=== PATIENT | female | born 1980 | race Caucasian/White ===

== ENCOUNTER 2017-09-06 08:26 | Emergency (ER) | payer MEDICAID, OTHER ==
[2017-09-06 08:27] VITALS: BMI 24.0
[2017-09-06 08:39] VITALS: BP 125/68; PULSE 60; RESP 16; TEMP 97.9; O2SAT 100
--- NOTE | 2017-09-06 08:47 | C.PDOC ---
History Of Present Illness 37-year-old female, presents to the emergency department with complaints of an itchy rash to bilateral arms upon waking up this morning. Patient denies any known allergens, new detergents or lotions. Denies shortness of breath, sensation of throat closing up, lip or tongue swelling. No other complaints at this time Time Seen by Provider: 09/06/17 08:41 Chief Complaint (Nursing): Abnormal Skin Integrity History Per: Patient History/Exam Limitations: no limitations Current Symptoms Are (Timing): Still Present Past Medical History Reviewed: Historical Data, Nursing Documentation, Vital Signs Vital Signs: Last Vital Signs Temp 97.9 F 09/06/17 08:32 Pulse 60 09/06/17 08:32 Resp 16 09/06/17 08:32 BP 125/68 09/06/17 08:32 Pulse Ox 100 09/06/17 08:50 - Medical History PMH: Asthma Surgical History: Hernia Repair - [facility] Procedures OTH & OPEN REPAIR INDIRECT INGUINAL HERNIA W GRFT OR PROSTH (03/19/13) Family History: States: No Known Family Hx - Social History Hx Tobacco Use: No Hx Alcohol Use: Yes Hx Substance Use: No - Immunization History Hx Tetanus Toxoid Vaccination: (unk) Hx Influenza Vaccination: Yes Hx Pneumococcal Vaccination: Yes Review Of Systems Constitutional: Negative for: Fever, Chills Cardiovascular: Negative for: Chest Pain Respiratory: Negative for: Shortness of Breath Gastrointestinal: Negative for: Vomiting Skin: Positive for: Rash Neurological: Negative for: Weakness, Numbness, Headache, Dizziness Physical Exam - Physical Exam Appears: Non-toxic Skin: Warm, Dry, Rash (urticarial rash, moderately to left arm, mild to right. sparing palms) Head: Atraumatic, Normacephalic Eye(s): bilateral: PERRL Nose: Normal Oral Mucosa: Moist Tongue: No Swelling Lips: Normal Appearing, No Swelling Throat: No Drooling Neck: Normal ROM Chest: Symmetrical Cardiovascular: Rhythm Regular, No Murmur Respiratory: Normal Breath Sounds, No Accessory Muscle Use Extremity: Normal ROM, No Deformity, No Swelling Neurological/Psych: Oriented x3, Normal Speech ED Course And Treatment O2 Sat by Pulse Oximetry: 100 Progress Note: Pt treated with Benadryl, Pepcid and Prednisone Disposition Counseled Patient/Family Regarding: Diagnosis, Need For Followup, Rx Given - Disposition Referrals: [facility] [Outside] Disposition: HOME/ ROUTINE Disposition Time: 09:00 Condition: STABLE Additional Instructions: FOLLOW UP WITH YOUR DOCTOR IN 1-2 DAYS RETURN TO ER IF SYMPTOMS WORSEN USE MEDICATION DIRECTED Prescriptions: DiphenhydrAMINE [Benadryl] 25 mg PO Q6 PRN #20 cap PRN Reason: Itching / Pruritus predniSONE [predniSONE Tab] 40 mg PO DAILY #6 tab Instructions: Hives (DC) Forms: [employer] (Jamaican), Work Excuse Print Language: LIBERIAN - POA Present On Arrival: None - Clinical Impression Clinical Impression: Allergic reaction, Urticaria - Scribe Statement The provider has reviewed the documentation as recorded by the Scribe (Rashawn Trinidad) All medical record entries made by the Scribe were at my direction and personally dictated by me. I have reviewed the chart and agree that the record accurately reflects my personal performance of the history, physical exam, medical decision making, and the department course for this patient. I have also personally directed, reviewed, and agree with the discharge instructions and disposition.
== END 2017-09-06 09:16 | disposition home or self-care (01) ==
LOC: C.ER 08:26
DX: L50.0 Allergic urticaria (principal)

== ENCOUNTER 2018-03-27 18:38 | Emergency (ER) | payer OTHER ==
[2018-03-27 18:38] VITALS: BMI 24.0
[2018-03-27 18:55] VITALS: BP 124/80; PULSE 76; RESP 18; TEMP 98; O2SAT 100
--- NOTE | 2018-03-27 19:14 | C.PDOC ---
History Of Present Illness 37-year-old female presents to the ED complaining of a very itchy rash for the past 2-3 months. Patient was seen by PMD and told to take Benadryl. She was then seen by oncology nurse navigator, given allergy medication and steroid cream without significant relief. Patient reports persistent itchiness and rash, unchanged despite treatment. She denies any fevers, chills, cough, SOB, or lip/tongue swelling. Time Seen by Provider: 03/27/18 18:59 Chief Complaint (Nursing): Abnormal Skin Integrity History Per: Patient History/Exam Limitations: no limitations Onset/Duration Of Symptoms: Days Current Symptoms Are (Timing): Still Present Past Medical History Reviewed: Historical Data, Nursing Documentation, Vital Signs Vital Signs: Last Vital Signs Temp 98 F 03/27/18 18:53 Pulse 76 03/27/18 18:53 Resp 18 03/27/18 18:53 BP 124/80 03/27/18 18:53 Pulse Ox 100 03/27/18 18:53 - Medical History PMH: Asthma Surgical History: Hernia Repair - [facility] Procedures OTH & OPEN REPAIR INDIRECT INGUINAL HERNIA W GRFT OR PROSTH (03/19/13) Family History: States: Unknown Family Hx - Social History Hx Tobacco Use: No Hx Alcohol Use: Yes Hx Substance Use: No - Immunization History Hx Tetanus Toxoid Vaccination: Yes Hx Influenza Vaccination: No Hx Pneumococcal Vaccination: No Review Of Systems Constitutional: Negative for: Fever, Chills ENT: Negative for: Mouth Swelling, Throat Swelling Respiratory: Negative for: Cough, Shortness of Breath Skin: Positive for: Rash (diffuse) Physical Exam - Physical Exam Appears: Non-toxic, No Acute Distress Skin: Warm, Dry, Rash (annular scaly lesions with central clearing diffusely to the torso, extremities, neck but not face) Head: Atraumatic, Normacephalic Eye(s): bilateral: Normal Inspection Oral Mucosa: Moist Neck: Normal ROM Chest: Symmetrical Respiratory: No Accessory Muscle Use, Other (Speaking in full sentences) Extremity: Bilateral: Atraumatic, Normal ROM Neurological/Psych: Oriented x3, Normal Speech ED Course And Treatment O2 Sat by Pulse Oximetry: 100 (RA) Pulse Ox Interpretation: Normal Medical Decision Making Medical Decision Making: Impression: scaly annular rash to body; pityriasis vs tinea; no signs of cellulitis Plan: Benadryl Will prescribe topical steroid and antifungal to use. Advise follow up with manager bar. Disposition Counseled Patient/Family Regarding: Diagnosis, Need For Followup - Disposition Referrals: Judd Hernandez MD [Staff Provider] - Disposition: HOME/ ROUTINE Disposition Time: 19:12 Condition: GOOD Additional Instructions: Take anti-itch medicine as needed Apply cream to affected area, one is anti-fungal and other is steroid cream Please follow up with manager bar, cash management specialist for further evaluation and diagnosis Prescriptions: Betamethasone/Propylene Glyc [Betamethasone Dp Aug 0.05% Oin] 45 gm TP BID #1 oint...g. Clotrimazole 1% Cream [Lotrimin 1%] 30 applic EXT BID #1 tube DiphenhydrAMINE [Benadryl] 25 mg PO Q4 PRN #30 cap PRN Reason: Rash DiphenhydrAMINE [Benadryl] 25 mg PO Q4 PRN #30 cap PRN Reason: Rash Instructions: Skin Rash (DC) Forms: [employer] (Macedonian) - POA Present On Arrival: None - Clinical Impression Clinical Impression: Pityriasis rosea-like skin eruption - PA / [employer] P[employer]ER / Resident Statement MD/DO has reviewed & agrees with the documentation as recorded. - Scribe Statement The provider has reviewed the documentation as recorded by the Sallyibjared Camacho All medical record entries made by the aSllyibjared were at my direction and personal ly dictated by me. I have reviewed the chart and agree that the record accurately reflects my personal performance of the history, physical exam, medical decision making, and the department course for this patient. I have also personally directed, reviewed, and agree with the discharge instructions and disposition.
== END 2018-03-27 19:26 | disposition home or self-care (01) ==
LOC: C.ER 18:38
DX: L42 Pityriasis rosea (principal)